=== PATIENT | male | born 1990 | race Hispanic/Latino ===

== ENCOUNTER 2020-09-15 11:38 | Emergency (ER) | payer OTHER ==
[~2020-09-15] VITALS: Ht 172.7 cm; Wt 95.3 kg
[2020-09-15 12:06] VITALS: BP 155/99
[2020-09-15] MEDS ORDERED: TORADOL IV STA (12:07)
[2020-09-15 12:15] LABS: BASOPHIL % 0.4 % (0.0-0.2); EOSINOPHIL # 0.1 10^3/uL (0.0-0.2); EOSINOPHIL % 0.9 % (0.0-5.0); LYMPHOCYTES # 2.21 10^3/uL1 (1.0-4.8); LYMPHOCYTES % 20.9 % (24.0-44.0); MONOCYTES # 0.7 10^3/uL (0.3-0.8); MONOCYTES % 6.9 % (5.0-12.0); NEUTROPHIL # 7.5 10^3/uL (1.8-7.7); NEUTROPHILS % 70.9 % (41.0-85.0); PLATELET COUNT 240 10^3/uL (150-400); RED CELL DISTRIBUTION WIDTH 11.8 % (11.5-14.5)
--- NOTE | 2020-09-15 12:15 | ER.PDOC ---
General Chief Complaint: Flank Pain Stated Complaint: LOWER BACK PAIN Time seen by MD: 12:14 Source: patient Exam Limitations: no limitations History of Present Illness Initial Comments Right flank/lower back pain for 3 days. Pain is 6 out of 10, sharp, radiates to the right lower quadrant. No nausea or vomiting. He denies injury. Severity/Quality: moderate Radiation: RLQ Associated Symptoms: denies symptoms Exacerbated by: nothing Relieved By: nothing Vital Signs First Vital Signs Date Time Temp Pulse Resp B/P (MAP) Pulse Ox O2 Delivery O2 Flow Rate FiO2 09/15/20 12:06 98.6 99 18 09/15/20 12:06 99 Last Vital Signs Date Time Temp Pulse Resp B/P (MAP) Pulse Ox O2 Delivery O2 Flow Rate FiO2 09/15/20 12:10 98.6 99 18 99 Past Medical History Medical History: no pertinent history Surgical History: no surgical history Family History Significant Family History: no pertinent family hx Social History Smoking: non-smoker Alcohol Use: none Drug Use: none Constitutional: no symptoms reported EENTM: no symptoms reported Respiratory: no symptoms reported Cardiovascular: no symptoms reported Gastrointestinal: no symptoms reported Genitourinary: see HPI Musculoskeletal: no symptoms reported All Other Systems: Reviewed and Negative Physical Exam General Appearance: No Apparent Distress, WD/WN Neck: Non-Tender, Full Range of Motion, Supple, Normal Inspection Respiratory: chest non-tender, lungs clear, normal breath sounds, no respiratory distress, no accessory muscle use Cardiovascular: Normal Peripheral Pulses, Regular Rate, Rhythm, No Edema, No G allop, No JVD, No Murmur Gastrointestinal: Normal Bowel Sounds, No Organomegaly, No Pulsatile Mass, Non Tender Back: CVA Tenderness (R) Extremities: Normal Range of Motion, Non-Tender, Normal Inspection, No Pedal Edema, No Calf Tenderness, Normal Capillary Refill, Pelvis Stable Neurologic/Psychiatric: company doctor II-XII NML as Tested, No Motor/Sensory Deficits, Alert, Normal Mood/Affect, Oriented x 3 Skin: Normal Color, Warm/Dry Lymphatic: No Adenopathy Results/Orders Results/Orders Orders - GEORGIANA BANG MD Cbc With Auto Diff (09/15/20 12:07) Comprehensive Metabolic Panel (09/15/20 12:07) PT (09/15/20 12:07) Partial Thromboplastin Time. (09/15/20 12:07) Urinalysis (09/15/20 12:07) Ct Abd/Pelvis Wo Iv Contrast (09/15/20 12:07) Ketorolac Tromethamine (Toradol) (09/15/20 12:07) Urine Culture (09/15/20 12:05) Ketorolac Tromethamine (Toradol) (09/15/20 12:56) Vital Signs Date Time Temp Pulse Resp B/P (MAP) Pulse Ox O2 Delivery O2 Flow Rate FiO2 09/15/20 12:10 98.6 99 18 99 09/15/20 12:06 98.6 74 18 99 09/15/20 12:06 98.6 99 18 Administered Medications Medications (Trade) Dose Ordered Sig/Geoff Route PRN Reason Start Time Stop Time Status Last Admin Dose Admin Ketorolac Tromethamine (Toradol) 30 mg STAT STAT IV 09/15/20 12:07 09/15/20 12:09 DC 09/15/20 12:30 30 MG Laboratory Tests Test 09/15/20 12:05 White Blood Count 10.6 10^3/uL (4.5-11.0) Red Blood Count 5.12 10^6/uL (4.50-5.90) Hemoglobin 16.4 g/dL (13.9-16.3) H Hematocrit 45.1 % (37.0-53.0) Mean Corpuscular Volume 88.1 fL (78-100) Mean Corpuscular Hemoglobin 32.0 pg (26-34) Mean Corpuscular Hemoglobin Concent 36.4 g/dL (33-36.5) Red Cell Distribution Width 11.8 % (11.5-14.5) Platelet Count 240 10^3/uL (150-400) Mean Platelet Volume 9.5 fL (7.8-11.0) Neutrophils (%) (Auto) 70.9 % (41.0-85.0) Lymphocytes (%) (Auto) 20.9 % (24.0-44.0) L Monocytes (%) (Auto) 6.9 % (5.0-12.0) Neutrophils # (Auto) 7.5 10^3/uL (1.8-7.7) Lymphocytes # (Auto) 2.21 10^3/uL1 (1.0-4.8) Monocytes # (Auto) 0.7 10^3/uL (0.3-0.8) Absolute Immature Granulocyte (auto 0 10^3 u/L (0-2) Absolute Eosinophils (auto) 0.1 10^3/uL (0.0-0.2) Immature Granulocytes % 0.00 % (0.00-0.50) Eosinophils % 0.9 % (0.0-5.0) Basophils % 0.4 % (0.0-0.2) H Basophils # 0.0 10^3/uL (0.0-0.1) Prothrombin Time 10.7 SEC (9.3-11.3) Prothrombin Time INR (Non-Therap) 1.1 Activated Partial Thromboplast Time 25.6 SEC (24.67-30.72) Urine Collection Type UNKNOWN Urine Color YELLOW (YELLOW) Urine Appearance CLEAR (CLEAR) Urine Bilirubin NEGATIVE MG/DL (NEGATIVE) Urine Ketones NEGATIVE (NEGATIVE) Urine Specific [place] 1.025 (1.005-1.035) Urine pH 6.0 (5.0-6.0) Urine Protein NEGATIVE (NEGATIVE) Urine Urobilinogen NORMAL (NEGATIVE) Urine Nitrate NEGATIVE (NEGATAIVE) Urine Leukocyte Esterase NEGATIVE (NEGATIVE) Urine Blood LARGE (NEGATIVE) Urine RBC TNTC RBC/HPF (NONE SEEN) H Urine WBC NONE SEEN WBC/HPF (0-2) Urine Squamous Epithelial Cells NONE SEEN #/HPF (FEW) Urine Bacteria NONE SEEN (NONE SEEN) Urine Glucose NORMAL (NEGATIVE) Sodium Level 140 mmol/L (132-145) Potassium Level 3.9 mmol/L (3.6-5.2) Chloride Level 103.0 mmol/L (96-109) Carbon Dioxide Level 27.8 mmol/L (20.0-32) Anion Gap 13.1 Blood Urea Nitrogen 15 mg/dL (7-18) Creatinine 1.39 mg/dL (0.59-1.40) Estimated GFR () 72.1 (>/=60) Est GFR (CKD-EPI)(Non-Afr Greek) 59.6 (>/=60) BUN/Creatinine Ratio 10.0 Glucose Level 93 mg/dL (70-110) Calcium Level 8.9 mg/dL (8.4-10.5) Total Bilirubin 0.8 mg/dL (0.2-1.0) Aspartate Amino Transferase (AST) 47 U/L (0-35) H Alanine Aminotransferase (ALT) 128 U/L (12-78) H Alkaline Phosphatase 90 U/L (50-136) Total Protein 7.5 g/dL (6.4-8.2) Albumin 4.1 g/dL (3.4-5.0) Globulin 3.4 Albumin/Globulin Ratio 1.[address] abdomen/pelvis: There is a 3 mm calculus at the right ureterovesicular junction with mild upstream hydroureteronephrosis. There is a 2 mm right lower pole renal calculus. 2. Question punctate left mid renal calculus. Scarring with lobulated appearance of the left lower kidney. No left hydronephrosis. 3. Bilateral pars defects at L5 with grade 1 anterolisthesis of L5 on S1. 4. Other incidental findings as detailed above. Reviewed labs and CT report with patient. CBC is normal. Urine analysis does not show UTI. His pain is better with Toradol shot. ER DEPART Departure Time of Disposition: 13:10 Disposition: 01 HOME, SELF-CARE Impression: Primary Impression: Ureteral calculus, left Additional Impression: Renal colic Condition: Stable Referrals: PCP,UNKNOWN (PCP) PRIMARY CARE PROVIDER Additional Instructions: Tylenol No. 3 Flomax Push fluids Follow-up with Dr. Spring in 2 to 3 days if no improvement Return to ED if worsening pain or concerns Duration or Time Spent with Pa: 45 min Problem Qualifiers GEORGIANA BANG MD Sep 15, 2020 12:15
[2020-09-15 12:20] LABS: APPEARANCE,URINE CLEAR (CLEAR); BILIRUBIN,URINE NEGATIVE (NEGATIVE); UA COLOR YELLOW (YELLOW)
[2020-09-15 12:22] LABS: UROBILINOGEN,URINE NORMAL (NEGATIVE)
[2020-09-15 12:34] LABS: CALCIUM 8.9 mg/dL (8.4-10.5); CARBON DIOXIDE 27.8 mmol/L (20.0-32)
--- NOTE | 2020-09-15 12:37 | DIREP ---
PROCEDURE:CT ABDOMEN/PELVIS W/O CONTRAST COMPARISON:None. INDICATIONS:Right flank/back pain TECHNIQUE:Axial images were created through the abdomen and pelvis without intravenous contrast material. No oral contrast was administered. Sagittal and coronal reconstructions were performed from source images. FINDINGS: LUNG BASES:There is a 4 mm nodule in the lateral basal left lower lobe. Consider follow-up CT in 12 months to document stability. Subsegmental atelectasis in the inferior lingula. No effusion. Normal heart size. LIVER:Normal for technique. BILIARY:Normal. No visible dilatation or calcification. PANCREAS:Normal for technique. SPLEEN:Normal for technique. ADRENALS:Normal. No mass or enlargement. URINARY TRACT:There is a 3 mm calculus at the right ureterovesicular junction with mild upstream hydroureter. There is a 2 mm calculus in the right lower kidney. Mild scarring in the left lower pole with a lobulated appearance. No definite renal lesion identified. Question punctate calculus in the left mid kidney, best appreciated on sagittal reconstruction (series [id number], image [id number]). No left hydronephrosis. Urinary bladder is collapsed, limiting evaluation. AORTA/VASCULAR:Normal. No aneurysm. RETROPERITONEUM:Normal. No mass or adenopathy. BOWEL/MESENTERY:The appendix is visualized and appears normal. There is no intestinal obstruction, free fluid, free air or mesenteric inflammatory changes. ABDOMINAL WALL:Small fat containing right inguinal hernia. PELVIC ORGANS:Normal. No visible mass. Pelvic organs appropriate for patient age. BONES:Bilateral pars defects at L5 with 3 mm grade 1 anterolisthesis of L5 on S1. No aggressive osseous lesion. OTHER:Noncontrast technique decreases diagnostic sensitivity. CONCLUSION: 1. There is a 3 mm calculus at the right ureterovesicular junction with mild upstream hydroureteronephrosis. There is a 2 mm right lower pole renal calculus. 2. Question punctate left mid renal calculus. Scarring with lobulated appearance of the left lower kidney. No left hydronephrosis. 3. Bilateral pars defects at L5 with grade 1 anterolisthesis of L5 on S1. 4. Other incidental findings as detailed above. Dictated by: Vimal Banks M.D. on 09/15/2020 at 12:28 PM
[2020-09-15] MEDS ORDERED: TORADOL ONE (12:56)
[2020-09-15 13:15] VITALS: BP 150/81
== END 2020-09-15 13:10 | disposition home or self-care (01) ==
LOC: ER 11:38
DX: N20.1 Calculus of ureter (principal)
CPT/HCPCS: 36415; 74176; 80053; 81000; 85025; 85610; 85730; 87086; 96374; 99284; J1885